=== PATIENT | female | born 1990 | race Caucasian/White ===

== ENCOUNTER 2020-05-16 17:26 | Outpatient (CLI) | payer OTHER, SELFPAY | END 2020-05-16 17:27 | disposition home or self-care (01) | LOC: ANHCOVIDVC 17:26 | PROVIDERS: PCP Obstetrics & Gynecology | DX: Z23 Encounter for immunization (principal) | CPT/HCPCS: 0001A; 91300 ==

== ENCOUNTER 2020-06-06 17:23 | Outpatient (CLI) | payer OTHER, SELFPAY | END 2020-06-06 17:24 | disposition home or self-care (01) | LOC: ANHCOVIDVC 17:23 | PROVIDERS: PCP Obstetrics & Gynecology | DX: Z23 Encounter for immunization (principal) | CPT/HCPCS: 0002A; 91300 ==